=== PATIENT | female | born 1975 | race Two or more races ===

== ENCOUNTER 2023-08-08 10:09 | Emergency (ER) | payer MEDICAID ==
[~2023-08-08] VITALS: Ht 154.9 cm; Wt 79.0 kg
[2023-08-08 10:44] LABS: Urine Bacteria FEW /hpf (None Seen); Urine Blood 1+ /uL (Negative); Urine Clarity HAZY (Clear); Urine Color Yellow (Yellow); Urine Mucus FEW (None Seen); Urine Protein, UAD 1+ (Negative); Urine Specific Gravity 1.014 (1.001-1.035); Urine Urobilinogen Normal (Negative); Urine WBC 182 /hpf (0 - 5)
[2023-08-08] MEDS ORDERED: NITR-87 PO (11:00)
[2023-08-08] MEDS: cefTRIAXone SOD 1,000 MG VL IM ONE (11:07)
[2023-08-08 11:12] VITALS: BP 92/58; PULSE 106; RESP 18; TEMP 99.7; O2SAT 98
== END 2023-08-08 11:17 | disposition home or self-care (01) ==
LOC: ER 10:09
DX: N39.0 Urinary tract infection, site not specified (principal); Z87.442 Personal history of urinary calculi; Z88.1 Allergy status to other antibiotic agents
CPT/HCPCS: 81001; 96372; 99283; J0696